=== PATIENT | male | born 1975 | race Caucasian/White ===

== ENCOUNTER 2016-04-28 11:12 | Outpatient (CLI) | payer BC ==
--- NOTE | 2016-04-28 12:13 | DIAGNOSTIC IMAGING REPORT ---
PROCEDURE: XR CHEST 2 VIEW INDICATION: FATIGUE TECHNIQUE: PA and lateral views. COMPARISON: None. FINDINGS: Lungs are clear. Heart and mediastinum are normal. Thorax is normal. IMPRESSION: 1. Negative chest.
== END 2016-04-28 23:00 ==
LOC: XR SRH 11:12
DX: R53.83 Other fatigue (principal); I10 Essential (primary) hypertension